=== PATIENT | male | born 1935 | race American Indian/Alaskan Native ===

== ENCOUNTER 2017-10-08 08:28 | Day surgery (SDC) | payer MEDICARE ==
[~2017-10-08 08:28] MED LIST: ANCEF/STERILE WATER 2 GM/20 ML 2 GM/20 ML SYRINGE IV NR; NACL 0.9% 1000 ML 1,000 ML IV SCH
[2017-10-08] MEDS ORDERED: NACL 0.9% 500 ML 500 ML IV SCH (09:00)
[2017-10-08 10:00] LABS: Calcium 9.1 mg/dL (8.4-10.2); Potassium 3.7 mmol/L (3.6-5.0)
[2017-10-08] MEDS ORDERED: HEPARIN/NS 5000 UNIT/500ML(CATH LAB) 1,000 ML IR ONE (10:43)
[2017-10-08] MEDS ORDERED: XYLOCAINE 2% INFILTRATI ONE (10:43)
[2017-10-08] MEDS ORDERED: NACL 0.9% 250ML 250 ML ONE (10:44)
[2017-10-08] MEDS ORDERED: ANCEF/STERILE WATER 2 GM/20 ML 2 GM/20 ML SYRINGE IV ONE (10:44)
[2017-10-08] MEDS: SUBLIMAZE ONE ×4 (10:58→12:40)
[2017-10-08] MEDS: VERSED ONE ×2 (10:58→11:14)
[2017-10-08 11:05] LABS: Basophils % (Auto) 0.8 % (0.0-1.8); Eosinophils % (Auto) 3.7 % (0.0-4.3); Hematocrit 25.1 % (35.5-45.6); Hemoglobin 8.1 gm/dl (11.8-15.2); Mean Corpuscular HGB Conc 32 % (32-34); Mean Corpuscular Hemoglobin 30 pg (28-32); Mean Corpuscular Volume 92 fl (84-94); Platelet Count 207 K/mm3 (140-440); Red Blood Count 2.73 M/mm3 (3.65-5.03); Red Cell Distribution Width 17.1 % (13.2-15.2); White Blood Count 5.1 K/mm3 (4.5-11.0)
[2017-10-08] MEDS: HEPARIN 10,000 UNITS/10 ML ONE ×2 (11:09→12:20)
[2017-10-08] MEDS ORDERED: VERSED ONE (11:22)
[2017-10-08] MEDS ORDERED: CALAN ONE (11:45)
[2017-10-08] MEDS ORDERED: TRIDIL DRIP 50MG/250ML 50 MG/250 ML BOTTLE ONE (11:49)
[2017-10-08] MEDS ORDERED: NACL 0.9% IV ONE (12:00)
[2017-10-08] MEDS ORDERED: NACL 0.9% 500 ML 500 ML ONE (12:17)
[2017-10-08] MEDS ORDERED: NACL 0.9% 1000 ML 1,000 ML ONE (12:18)
[2017-10-08 13:04] LABS: Basophils % (Auto) 0.6 % (0.0-1.8); Hematocrit 20.9 % (35.5-45.6); Hemoglobin 6.5 gm/dl (11.8-15.2); Mean Corpuscular HGB Conc 31 % (32-34); Mean Corpuscular Hemoglobin 28 pg (28-32); Mean Corpuscular Volume 91 fl (84-94); Platelet Count 170 K/mm3 (140-440); Red Blood Count 2.29 M/mm3 (3.65-5.03); Red Cell Distribution Width 17.2 % (13.2-15.2); White Blood Count 4.7 K/mm3 (4.5-11.0)
[2017-10-08] MEDS ORDERED: TRIPLE ANTIBIOTIC TP ONE (13:53)
--- NOTE | 2017-10-08 14:36 | Operative Report ---
Operative Report Operative Report: Operative note: Date: 10/08/2017 Preoperative diagnosis: Left leg ischemia with rest pain and tissue loss Postoperative diagnosis: Same. Operation: Ultrasound-guided access of left common femoral artery antegrade Left lower extremity angiogram. Catheterization of third degree vessel in left anterior tibial artery. Atherectomy of anterior tibial artery with a CSI 1.25 micro solid head Balloon angioplasty of anterior tibial artery with 2 mm balloon Surgeon: Ainsley Garces. Asst.: None Anesthesia: Moderate sedation EBL: Minimal Findings: Proximal anastomosis off left anterior tibial artery, occlusion of proximal to distal anterior tibial artery, reconstitution of dorsalis pedis. Peroneal runoff to the ankle. Occluded posterior tibial artery. Patent SFA and popliteal artery, TPT trunk Indications: 82-year-old gentleman complaining of rest pain of left lower extremity and ulcer on the great toe. She initially had angiogram in the office was attempted to go up and over for treatment of left lower extremity, however his ileocolic system is very torturous that made it impossible to treat left lotion meaty in the usual fashion. Patient was scheduled in the hospital for antegrade access and treatment of left lotion meaty. Patient was explained all risks, benefits and alternatives of procedure and chose to proceed. Signed informed consent. Operative details: Patient was brought to the [employer] [employer] and placed in supine position. His groins were prepped and draped in sterile fashion. Using continuous ultrasound he was left common femoral artery was accessed with micropuncture needle and micropuncture wire was inserted. That was checked with ultrasound and confirmed intravascular position of the wire and cannulation of SFA. The needle was exchanged through micropuncture sheath, however I was not able to advance soft carpal sheath. This was made to insert just dilated from micropuncture sheath and confirming that being intravascular, micropuncture wire was removed and the V18 wire inserted under fluoroscopy guidance. Next, the micropuncture inner dilator was removed and 5 American access sheath was placed. She is left flushed. Using initially a vertebral catheter and the 18 wire was advanced to anterior tibial artery and maneuvered into that. The wire wouldn't advance into mid portion beyond proximal as it was sleeping into the branch. 5 American access sheath was exchanged for 6 American by 25 cm sheath Attempts to advance trailblazer over the wire and that would go on the beyond proximal portion. Then I exchanged the 18 wire to Choice PT. That wasn't advanced any further. It appeared to be stuck on calcium and sent off that into the branch. I exchanged the wire to weighted tip Victory wire and that allowed advancing into the distal portion of 18 and a load trailblazer to be advanced further. She was heparinized with 5000 units of heparin. The wire was removed and Viper Wire inserted. A CSI bur could not be advanced all the way to distal portion and started from proximal AT in the segments treated the entire vessel. During flushing patient became hypotensive probably due to nitric content in the slide. Treatment was completed and then balloon angioplasty of entire vessel was performed with 2 mm balloon. Post- interventional angiogram showed patent anterior tibial artery with good vascularization of fluid. Peroneal artery remained open. Patient tolerated procedure well. Sheath was removed with manual pressure.
--- NOTE | 2017-10-08 14:43 | Short Stay Summary ---
Short Stay Documentation Date of service: 10/08/17 - History H&P: obtained from office - Allergies and Medications Current Medications: Allergies GAGE Inhibitors Allergy (Verified 05/21/16 11:02) Swelling iron Allergy (Verified 05/21/16 11:02) Unknown Sulfa (Sulfonamide Antibiotics) Allergy (Verified 05/21/16 11:02) Unknown Home Medications Medication Instructions Recorded Confirmed Last Taken Type Aspirin EC [Aspirin Enteric Coated 325 mg PO DAILY 05/21/16 10/08/17 10/07/17 History TAB] Cyanocobalamin (Vitamin B-12) 500 mg PO DAILY 05/21/16 10/08/17 10/07/17 History [Vitamin B12] Dialyvite 800-Zinc 15 mg Tab 1 tab PO DAILY 05/21/16 05/21/16 10/07/17 History Folic Acid [Folvite] 1 mg PO DAILY 05/21/16 10/08/17 10/07/17 History Metoprolol Tartrate [Lopressor] 25 mg PO BID 05/21/16 10/08/17 05/21/16 History 25mg Omeprazole [PriLOSEC] 20 mg PO DAILY 05/21/16 10/08/17 10/07/17 History Vitamin B-6 200 mg PO DAILY 05/21/16 05/21/16 10/07/17 History Lanthanum Carbonate [Fosrenol] 1 tab PO TID 10/08/17 10/08/17 10/07/17 History Psyllium Husk [Psyllium] 0.4 gm PO BID 10/08/17 10/08/17 10/07/17 History Active Medications Cefazolin Sodium (Ancef/Sterile Water 2 Gm/20 Ml) 2 gm in 20 mls @ 80 mls/hr IV PREOP NR PRN Reason: Protocol Stop: 10/08/17 23:59 Last Admin: 10/08/17 11:03 Dose: 20 mls Sodium Chloride (Nacl 0.9% 500 Ml) 500 mls @ 50 mls/hr IV DIRECT HARSHIL - Brief post op/procedure progress note Date of procedure: 10/08/17 Pre-op diagnosis: left leg ischemia with rest pain and tissue loss Post-op diagnosis: same Procedure: Ultrasound-guided access of left common femoral artery antegrade Left lower extremity angiogram. Catheterization of third degree vessel in left anterior tibial artery. Atherectomy of anterior tibial artery with a CSI 1.25 micro solid head Balloon angioplasty of anterior tibial artery with 2 mm balloon Anesthesia: MAC Findings: Proximal anastomosis off left anterior tibial artery, occlusion of proximal to distal anterior tibial artery, reconstitution of dorsalis pedis. Peroneal runoff to the ankle. Occluded posterior tibial artery. Patent SFA and popliteal artery, TPT trunk Surgeon: HAYDEE WHELAN Estimated blood loss: minimal Condition: stable - Hospital course Hospital course: uneventful. - Disposition Condition at discharge: Good Disposition: [id number] TO HOME OR SELFCARE Short Stay Discharge Plan Activity: advance as tolerated Diet: renal Wound: keep clean and dry Follow up with: FIONA SELF MD [Other] - 7 Days HAYDEE WHELAN DO [Staff Physician] - 14 Days Prescriptions: Clopidogrel [Plavix] 75 mg PO QDAY #30 tablet
[2017-10-08] MEDS ORDERED: PLAVIX PO ONE (14:44)
[2017-10-08 15:09] LABS: Hematocrit 26.7 % (35.5-45.6); Hemoglobin 8.4 gm/dl (11.8-15.2)
[2017-10-08] MEDS ORDERED: PLAVIX ONE (15:30)
[2017-10-08 19:05] VITALS: BP 123/50
--- NOTE | 2017-10-09 07:19 | Vascular Lab Report ---
MISCELLANEOUS VESSEL IDENTIFICATION: COMMENTS ON THE SCAN: The left common femoral artery was identified and under real-time ultrasound guidance was cannulated. IMPRESSION: Successful ultrasound guided arterial cannulation.
== END 2017-10-08 19:25 | disposition home or self-care (01) ==
LOC: CATHLABREC 08:28
PROVIDERS: ATTEND Surgery Vascular Surgery
DX: I70.213 Atherosclerosis of native arteries of extremities with intermittent claudication, bilateral legs (principal); I70.245 Atherosclerosis of native arteries of left leg with ulceration of other part of foot; E11.51 Type 2 diabetes mellitus with diabetic peripheral angiopathy without gangrene; E11.22 Type 2 diabetes mellitus with diabetic chronic kidney disease; I12.0 Hypertensive chronic kidney disease with stage 5 chronic kidney disease or end stage renal disease; N18.6 End stage renal disease; M19.90 Unspecified osteoarthritis, unspecified site; Z98.890 Other specified postprocedural states; Z79.82 Long term (current) use of aspirin; Z79.899 Other long term (current) drug therapy; Z79.84 Long term (current) use of oral hypoglycemic drugs; Z87.891 Personal history of nicotine dependence
CPT/HCPCS: 36415; 37229; 75710; 76937; 80048; 82962; 85014; 85018; 85025; 85347; 99156; 99157; C1724; C1725; C1769; J0690; J1644; J2250; J3010; J7030; J7040; J7050; A6250; Q9967